=== PATIENT | female | born 1965 | race Caucasian/White ===

== ENCOUNTER 2022-02-27 23:29 | Emergency (ER) | payer OTHER ==
[2022-02-27 23:47] VITALS: BP 136/72; PULSE 80; RESP 17; TEMP 97.9; BMI 22.6
== END 2022-02-28 00:05 | disposition home or self-care (01) ==
LOC: FER 23:29
DX: J98.01 Acute bronchospasm (principal)
CPT/HCPCS: 99281-25